=== PATIENT | male | born 1960 | race Caucasian/White ===

== ENCOUNTER 2025-04-01 13:16 | Emergency (ER) | payer MEDICARE, SELFPAY ==
--- OUTSIDE RECORDS SUMMARY | 2025-04-01 13:24 | XMS_ITS | Referral Summary ---
Author Organization [facility] [address] Address [address] [place] [address] Phone Care Team Providers Care Geographic Information Systems Engineer Name Role Phone Ted Robert Karli EPPS Primary Care Provider [phone] Allergies Active Allergy Reactions Criticality Noted Date Comments Meperidine Other Hives,Rash Medium 04/20/2022 [employer] Paroxetine Anxiety Reaction: nervousness, Medications aspirin (ASPIR-81) 81 mg tablet take 1 tablet by oral route every day 0 0 3 Active tadalafiL (CIALIS) 20 mg tablet Q 72 hour prn 10 tablet 1 3 Active amLODIPine (NORVASC) 5 mg tablet TAKE 1 TABLET(5 MG) BY MOUTH DAILY 90 tablet 1 4 Active losartan (COZAAR) 50 mg tablet TAKE 1 TABLET BY MOUTH DAILY 90 tablet 1 4 Active glimepiride (AMARYL) 1 mg tablet TAKE 1 TABLET BY MOUTH EVERY DAY BEFORE BREAKFAST 90 tablet 1 4 Active metFORMIN (GLUCOPHAGE) 1,000 mg tabletIndicatio ns:Type 2 diabetes mellitus without complication, without long-term current use of insulin (HCC) TAKE 1 TABLET(1000 MG) BY MOUTH TWICE DAILY WITH MEALS 180 tablet 1 5 Active Active Problems Problem Noted Date Diagnosed Date Non-recurrent acute suppurat juan carlos otitis media of left ear without spontaneous rupture of tympanic membrane 09/01/2024 Assessment & Plan (09/01/2024 1:56 PM CDT): Acute, symptoms for 5 days. Exam consistent with inner AND outer ear infection. Will Rx Augmentin as directed. Avoid sticking anything in your ears! Including q-tips as they can damage your ear canal. Call if symptoms are not improved with augmentin dosing. Otorrhea of right ear 01/15/2023 Assessment & Plan (02/05/2023 11:09 AM TILE FINISHER): Prescription medication sent to Pharmacy today: Continue 7-10 drops to the right ear twice daily for two more weeks, if no continued improvement will remove T-tube from Right ear at follow up Assessment & Plan (01/15/2023 9:37 AM TILE FINISHER): Ciprofloxacin 7 drops into Right EAR, NOT EYE, twice daily for 10 days Follow up in 2-3 weeks for right ear debris surrounding the T-tube Left T-tube removed today Follow up in 9 months if ringing and ear drainage improved 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 01/15/2023 Assessment & Plan (01/15/2023 9:37 AM TILE FINISHER): Left T-tube removed today with surrounding debris, no ottorrhea Dysfunction of both eustachian tubes 04/20/2022 Assessment & Plan (08/26/2022 1:09 PM CDT): Avoid ear cleaning techniques Avoid water to ears Follow up in 10 months, earlier with ear drainage Assessment & Plan (04/20/2022 3:06 PM CDT): Nasal saline spray (Simply saline, [employer], [place], [place]) 2 second sprays or 2 squeezes into each nostril while looking down over the sink, do not need to sniff in. Followed by Flonase 2 sprays into each nostril while looking down over the sink, do not sniff in or blow nose after use for at least 30 minutes daily Increase Cetirizine 10 mg (Zyrtec) daily Cefdinir with a meal twice daily for 10 days Follow up in 6 weeks with hearing test right before follow up Consider ear tube placement if no improvement Hearing test - [facility] Chronic otitis media of both ears with effusion 04/20/2022 Assessment & Plan (06/19/2022 12:43 PM CDT): Bilateral myringotomy with ear tube placement in Office today Risks and complications discussed including anesthesia, bleeding, infection, hearing loss, ear tubes may fall out early, fall inwards, stay in longer than a few years, get clogged, fall out and leave a hole in the ear drum that would need to be patched, drain clear fluid. Ciprofloxacin 5 drops into EACH EAR, NOT EYE, twice daily for 5 days Follow in 1-2 weeks for recheck Assessment & Plan (06/15/2022 10:09 AM CDT): Bilateral myringotomy with T-tube placement in Office Risks and complications discussed including anesthesia, bleeding, infection, hearing loss, ear tubes may fall out early, fall inwards, stay in longer than a few years, get clogged, fall out and leave a hole in the ear drum that would need to be patched, drain clear fluid. Assessment & Plan (04/20/2022 3:06 PM CDT): Nasal saline spray (Simply saline, [employer], [place], [place]) 2 second sprays or 2 squeezes into each nostril while looking down over the sink, do not need to sniff in. Followed by Flonase 2 sprays into each nostril while looking down over the sink, do not sniff in or blow nose after use for at least 30 minutes daily Increase Cetirizine 10 mg (Zyrtec) daily Cefdinir with a meal twice daily for 10 days Follow up in 6 weeks with hearing test right before follow up Consider ear tube placement if no improvement Hearing test - [facility] Routine physical examination 07/03/2021 Overview (07/03/2021): Added automatically from request for surgery [id number] Assessment & Plan (06/15/2024 6:38 PM CDT): 1, IMMUNIZATIONS WERE REVIEWED AND UPDATED 2. DUE FOR A DILATED EYE EXAM 3. DM TYPE 2 GOAL HBAIC IS UNDER 7 PERCENT / FOOT EXAM IS NL / URINE FOR MICROALBUMIN NEXT VISIT 4. ESSENTIAL HYPERTENSION GOAL BP 130/80 OR UNDER 5. MIXED HYPERLIPIMDEIA : GOAL LDL IS UNDER 100 6. UPTODATE ON COLONSCOPY AND RECTAL EXAM Medical non-compliance 12/31/2017 Alcoholic hepatitis without ascites 05/19/2017 Type 2 diabetes mellitus wit hout complication, without long-term current use of insulin 05/19/2017 Assessment & Plan (12/18/2024 8:00 PM TILE FINISHER): DIALTED EYE EXAM IS NL FOOT EXAM IS NL GOAL HBAIC IS UNDER 7P ERCENT Male erectile disorder 04/14/2014 Overview (03/03/2017): ED (erectile dysfunction) Essential hypertension 04/14/2014 Overview (03/06/2017): Hypertension Assessment & Plan (12/18/2024 7:59 PM TILE FINISHER): GOAL BP IS 130/80 OR UNDER LOW NA DIET Immunizations Immunization Administration Dates Next Due Influenza, Quadrivalent, [place] l Culture-based MDCK, Preservative Free, Antibiotic Free, Intramuscular 09/08/2023,10/06/2021 Influenza, Quadrivalent, Spl it, Intramuscular 10/06/2017 Influenza, Quadrivalent, Spl it, Preservative Free, Intramuscular 09/25/2022,09/12/2020,09/04/2019,09/15 Influenza, Split 08/31/2013 Influenza, Trivalent, High D ose, Split, Preservative Free, Intramuscular 08/28/2016 Influenza, Trivalent, IM (MDV) 08/26/2015,2013 Influenza, Trivalent, Preser vative Free, Intramuscular 09/01/2024,08/27/2016 Tdap 07/25/2012 Social History Tobacco Use Types Packs/Day Years Used Date Smoking Tobacco: Former Smokeless Tobacco: Former Chew Tobacco Cessation:Counseling Given: Not Answered Comments:Smoking History Packs/day: 2 Packs Alcohol Use Standard Drinks/Week Comments Yes 0 (1 standard drink = 0.6 oz pur e alcohol) PHQ-2 Answer Date Recorded PHQ-2 Total Score (If total score is 3 or more points, staff should administer the PHQ-9) 0 06/15/2024 Personal Safety Answer Date Recorded Have you ever been in or are you currently in a harmful physical or emotional relationship or is someone making you feel afraid or unsafe? Denies 06/23/2023 Sex and Gender Information Value Date Recorded Sex Assigned at Not on file Legal Sex Male 1:16 AM TILE FINISHER Gender Identity Not on file Sexual Orientation Not on file Last Filed Vital Signs Vital Sign Reading Time Taken Comments Blood Pressure 122/68 12/18/2024 1:01 PM TILE FINISHER Pulse 72 12/18/2024 1:01 PM TILE FINISHER Temperature 36.3 C (97.3 F) 12/18/2024 1:01 PM TILE FINISHER Respiratory Rate 16 12/18/2024 1:01 PM TILE FINISHER Oxygen Saturation 98% 12/18/2024 1:01 PM TILE FINISHER Inhaled Oxygen Concentration - - Weight 86.1 kg (189 lb 12.8 oz) 12/18/2024 1:01 PM TILE FINISHER Height 172.7 cm (5' 8 ) 12/18/2024 1:01 PM TILE FINISHER Body Mass Index 28.86 12/18/2024 1:01 PM TILE FINISHER Plan of Treatment Not on file Procedures Procedure Name Priority Date/Time Associated Diagnosis Comments HM DIABETES EYE EXAM Routine 03/15/2025 10:36 AM CDT EGFR Routine 12/14/2024 11:23 AM TILE FINISHER Routine physical examination Essential hypertension HEMOGLOBIN A1C Routine 12/14/2024 11:23 AM TILE FINISHER Routine physical examination Type 2 diabetes mellitus without complication, without long-term current use of insulin (HCC) LIPID PANEL Routine 12/14/2024 11:23 AM TILE FINISHER Routine physical examination Type 2 diabetes mellitus without complication, without long-term current use of insulin (HCC) PSA SCREEN Routine 12/14/2024 11:23 AM TILE FINISHER Routine physical examination Prostate cancer screening ALBUMIN CREATININE RATIO, URINE Routine 11/16/2023 11:47 AM TILE FINISHER Type 2 diabetes mellitus without complication, without long-term current use of insulin (HCC) COLONOSCOPY 08/25/2021 7:34 AM CDT from Last 3 Months or Most Recently Relevant to Health Maintenance Results * DIABETES EYE EXAM (03/15/2025 10:36 AM CDT) SCRIBED DIABETIC DILATED EYE EXAM Normal Historical Provider HEALTH MAINTENANCE Final Result * eGFR (12/14/2024 11:23 AM TILE FINISHER) eGFR 73 >=60 mL/min/1. 73 m2 Comment: Interpretive Data Reference Interval Normal >/= 90 mL/min/1.73m2 Mildly decreased* 60 - 89 mL/min/1.73m2 Mildly to moderately decreased 45 - 59 mL/min/1.73m2 Moderately to severely decreased 30 - 44 mL/min/1.73m2 Severely decreased 15 - 29 mL/min/1.73m2 Kidney Failure < 15 mL/min/1.73m2 *Relative to young adult level Estimated glomerular filtration rate is determined by the 2020 CKD-EPI equation recommended by the National Kidney Foundation (A Unifying Approach to GFR Estimation: Recommendations of the NKF-ASK Task Force on Reassessing the Inclusion of Race in Diagnosing Kidney Disease, JASN 2020). The CKD-EPI equation should not be used for patients with unstable renal function and has not been validated in children and those over 70. Current interpretive data was last reviewed 2021. Testing performed by: , [address] [place] [address], [place]., [address] Blood 12/14/2024 11:2 3 AM TILE FINISHER 12/14/2024 6:26 PM TILE FINISHER Ted Robert MD LAB BLOOD ORDERABLES Final Result [facility] [address] [facility] [place] Department [place] [address] * PSA screen (12/14/2024 11:23 AM TILE FINISHER) PSA-Total 0.73 <=5.40 ng/mL Comment: Interpretive Data AGE SEX REFERENCE INTERVAL 0 minutes-150 years Female None 0 minutes-49 years Male None 50-59 years Male 0-3.90 60-69 years Male 0-5.40 70-79 years Male 0-6.20 80-150 years Male 0-6.20 The Tor PSA Total assay procedure was used. Results from different manufacturers or methods may not be comparable. Serial testing should be performed using the same method. Current interpretive data last revised 22. Testing performed by: [address] [address] Blood 12/14/2024 11:2 3 AM TILE FINISHER 12/14/2024 6:10 PM TILE FINISHER Result [facility] Ted Robert MD LAB BLOOD ORDERABLES Final Result [facility] [address] Department [place] [address] * (ABNORMAL) Hemoglobin A1c (12/14/2024 11:23 AM TILE FINISHER) Pathologist [facility] Hgb A1C 6.8(H) 4.0 - 5.6 % Comment:Testing performed by : [address] [address] Estimated Average Glucose 148 mg/dL [facility] Comment: The ADA recommends reporting an estimated Average Glucose (eAG) with all Hemoglobin A1c results using the equation derived from a study of 507 normal and diabetic adults. Minority populations were underrepresented and children were not included. (Diabetes Care 31:8997-6097, 2008). The eAG is not equivalent to a fasting glucose. Testing performed by: [address] [address] Blood 12/14/2024 11:2 3 AM TILE FINISHER 12/14/2024 6:10 PM TILE FINISHER Ted Robert MD LAB BLOOD ORDERABLES Final Result [facility] [address] [facility] [place] Department [place] [address] * (ABNORMAL) Lipid panel (12/14/2024 11:23 AM TILE FINISHER) Cholesterol 190 30 - 199 mg/dL Comment: Interpretive Data Ages < or = 19 years Acceptable: <170 mg/dL Borderline high: 170-199 mg/dL High: >or= 200 mg/dL Ages > or = 20 years Desirable: <200 mg/dL Borderline high: 200-239 mg/dL High: >or= 240 mg/dL Literature References: 1. Expert Panel on Integrated Guidelines for Cardiovascular Health and Risk Reduction in Children and Adolescents. Pediatrics 2011;128:S213 2. NCEP Expert Panel. Circulation 2004;110:227 Current Interpretive Data was last revised on 2018. Testing performed by: [address] [address] Triglycerides 164(H) <=149 mg/dL [facility] Comment: Interpretive Data Ages < or = 9 years Acceptable: <75 mg/dL Borderline high: 75-99 mg/dL High: >or= 100 mg/dL Ages 10 to 20 years Acceptable: <90 mg/dL Borderline high: 90-129 mg/dL High: >or= 130 mg/dL Ages > or = 20 years Desirable: <150 mg/dL Borderline high: 150-199 mg/dL High: 200-499 mg/dL Very high: >or= 499 mg/dL Literature References: 1. Expert Panel on Integrated Guidelines for Cardiovascular Health and Risk Reduction in Children and Adolescents. Pediatrics 2011;128:S213 2. NCEP Expert Panel. Circulation 2004;110:227 Current Interpretive Data was last revised on 2018. Testing performed by: , [address] [place] [address]., [address] HDL 32(L) >=40 mg/dL [facility] Comment: Interpretive Data Ages < or = 19 years Acceptable: >45 mg/dL Borderline low: 40-45 mg/dL Low: <40 mg/dL Ages > or = 20 years Desirable: >or= 60 mg/dL Low: <40 mg/dL Literature References: 1. Expert Panel on Integrated Guidelines for Cardiovascular Health and Risk Reduction in Children and Adolescents. Pediatrics 2011;128:S213 2. NCEP Expert Panel. Circulation 2004;110:227 Current Interpretive Data was last revised on 2018. Testing performed by: [address] [address] LDL, calculated 128 <=129 mg/dL [facility] RUIZ Comment: Interpretive Data Ages < or = 19 years Acceptable: <110 mg/dL Borderline high: 110-129 mg/dL High: >or= 130 mg/dL Ages > or = 20 years Optimal: <100 mg/dL Near optimal: 100-129 mg/dL Borderline high: 130-159 mg/dL High: >160 mg/dL Calculated using the Jed LDL-C estimating equation. This equation was implemented on 2024. Prior to this date LDL-C was estimated using the Friedewald equation. Literature References: 1. Expert Panel on Integrated Guidelines for Cardiovascular Health and Risk Reduction in Children and Adolescents. Pediatrics 2011;128:S213 2. NCEP Expert Panel. Circulation 2004;110:227 3. Jed Boone et al. HERIBERTO Cardiol. 2019March 29;5(5):540-548. doi: 10.1001/[email or web address] Current Interpretive Data was last revised on 2024. Testing performed by: [address] [address] Non-HDL Cholesterol 158 mg/dL [facility] Comment: Interpretive Data Ages < or = 19 years Acceptable: <120 mg/dL Borderline high: 120-144 mg/dL High: >145 mg/dL Ages > or = 20 years When triglycerides are >200 mg/dL, Non-HDL cholesterol is a secondary target of therapy with treatment goals that are 30 mg/dL greater than the LDL cholesterol target. Literature References: 1. Expert Panel on Integrated Guidelines for Cardiovascular Health and Risk Reduction in Children and Adolescents. Pediatrics 2011;128:S213 2. NCEP Expert Panel. Circulation 2004;110:227 Current Interpretive Data was last revised on 2018. Testing performed by: [address] [place] [address] Chol/HDL ratio 6 [facility] Comment:Testing performed by : [address] [place] [address] Blood 12/14/2024 11:2 3 AM TILE FINISHER 12/14/2024 6:10 PM TILE FINISHER Ted Robert MD LAB BLOOD ORDERABLES Final Result Performing Organization Address [facility] Phone Number [facility] [phone] [address] [place] [phone] * (ABNORMAL) Albumin Creatinine Ratio, Urine (11/16/2023 11:47 AM TILE FINISHER) Albumin Ur 64.7 mg/L [facility] Comment: Interpretive Data No reference range established. Current interpretive data was last revised 2019. Creatinine Ur 206.8 mg/dL [facility] Comment: Interpretive Data No reference range established. Current interpretive data was last revised 2019. Albumin Creatinine Ratio, Ur 31(H) 1 - 29 mg/g [facility] Urine 11/16/2023 11:4 7 AM TILE FINISHER 11/16/2023 5:33 PM TILE FINISHER Ted Robert MD LAB URINE ORDERABLES Final Result Performing Organization Address [facility] Phone Number [facility] [phone] [place] [address] * COLONOSCOPY (08/25/2021 7:34 AM CDT) Anatomical Region Laterality Modality Other Narrative Procedure Note Lc Garvin MD - 08/25/2021 7:34 AM CDT [facility] Patient Name: Nilesh No Procedure Date: 08/25/2021 7:34 AM Date of : 1960 Admit Type: Outpatient Age: 60 Gender: Male Attending MD: Lc Garvin M.D. Room: [facility] ENDOSCOPY ROOM 2 Note Status: Finalized Patient Profile: Refer to note in patient chart for documentation of history and physical. Procedure: Colonoscopy Indications: Screening for colorectal malignant neoplasm, Last colonoscopy: February 2010 Referring MD: Ted Robert M.D. Providers: Lc Garvin M.D. Impression: - Hemorrhoids found on perianal exam. - The entire examined colon is normal. - No specimens collected. Recommendation: - Discharge patient to home. - Resume previous diet. - Continue present medications. - Repeat colonoscopy in 10 years for screening purposes. - Return to primary care physician as previously scheduled. Medicines: Propofol per Anesthesia Complications: No immediate complications. Estimated Blood Loss: Estimated blood loss: none. Procedure: Pre-Anesthesia Assessment: - This assessment was completed [Time ofAssessment] prior to the administration of sedation. The benefits, risks and alternatives of theprocedure and sedation were discussed and informed consentwas obtained. All questions were answered. Please referto the signed informed consent document in the medical record. The bowel preparation used was Miralax and bisacodyl tablets via single dose instruction. The scope was passed under direct vision. TheColonoscope [id number] was introduced through the anus and advanced to the the cecum, identified by appendiceal orifice and ileocecal valve. The colonoscopy was performed without difficulty. The patient tolerated the procedure well. The qualityof the bowel preparation was good. Findings: Hemorrhoids were found on perianal exam. The colon (entire examined portion) appeared normal. Electronically signed by Lc Garvin M.D. Lc Garvin M.D. 08/25/2021 9:17:34 AM Number of Addenda: 0 Note Initiated On: 08/25/2021 7:34 AM Procedure Code(s): --- Professional --- G0121, Colorectal cancer screening; colonoscopy on individual not meeting criteria for high risk Diagnosis Code(s): --- Professional --- K64.9, Unspecified hemorrhoids Z12.11, Encounter for screening for malignant neoplasm of colon CPT copyright 2019 [employer]. All rights reserved. The codes documented in this report are preliminary and upon indirect sales representative reviewmay be revised to meet current compliance requirements. Recognized by the [employer] for promoting quality in endoscopy Lc Garvin MD ENDOSCOPY PROCEDURES Final Re sult from Last 3 Months or Most Recently Relevant to Health Maintenance Insurance [place] [address] [employer] [facility] [place] [address] Advance Directives For more information, please contact: [phone] * Full Code (Latest Code Status on File) Date Activated Date Inactivated Comments 08/25/2021 7:46 AM 08/25/2021 2:08 PM * Full Code Date Activated Date Inactivated Comments 08/25/2021 7:46 AM 08/25/2021 7:46 AM Care Teams Geographic Information Systems Engineer Relationship Specialty Start Date End Date Ted Robert MD [address] [place] [address] PCP - General 02/26/17
--- OUTSIDE RECORDS SUMMARY | 2025-04-01 13:24 | XMS_ITS | Clinical Summary ---
Author Organization [facility] [address] Address [address] [place] [address] Phone Care Team Providers Care Forestry Patrolman Name Role Phone Ted Robert Karli EPPS Primary Care Provider [phone] Allergies Active Allergy Reactions Criticality Noted Date [...] 01/15/2023 Assessment & Plan (02/05/2023 11:09 AM HEAVY COIL WINDER): Prescription medication sent to Pharmacy today: Continue 7-10 drops to the right ear twice daily for two more weeks, if no continued improvement will remove T-tube from Right ear at follow up Assessment & Plan (01/15/2023 9:37 AM HEAVY COIL WINDER): Ciprofloxacin 7 drops into Right EAR, NOT EYE, twice daily for 10 days Follow up in 2-3 weeks for right ear debris surrounding the T-tube Left T-tube removed today Follow up in 9 months if ringing and ear drainage improved 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 01/15/2023 Assessment & Plan (01/15/2023 9:37 AM HEAVY COIL WINDER): Left T-tube removed today with surrounding debris, no ottorrhea Dysfunction of both eustachian tubes 04/20/2022 Assessment & Plan (08/26/2022 1:09 PM CDT): Avoid ear cleaning techniques Avoid water to ears Follow up in 10 months, earlier with ear drainage Assessment & Plan (04/20/2022 3:06 PM CDT): Nasal saline spray (Simply saline, [place], [place], [place]) 2 second sprays or 2 squeezes into [...] placement if no improvement Hearing test - [facility] Chronic otitis media of both [...] Nasal saline spray (Simply saline, [place], [place], [place]) 2 second sprays or 2 squeezes into [...] placement if no improvement Hearing test - [facility] Routine physical examination 07/03/2021 Overview (07/03/2021): Added automatically from request for surgery [id number] Assessment & Plan (06/15/2024 6:38 PM CDT): [...] 05/19/2017 Assessment & Plan (12/18/2024 8:00 PM HEAVY COIL WINDER): DIALTED EYE EXAM IS NL FOOT EXAM IS NL GOAL HBAIC IS UNDER 7P ERCENT Male erectile disorder 04/14/2014 Overview (03/03/2017): ED (erectile dysfunction) Essential hypertension 04/14/2014 Overview (03/06/2017): Hypertension Assessment & Plan (12/18/2024 7:59 PM HEAVY COIL WINDER): GOAL BP IS 130/80 OR UNDER LOW [...] Preser vative Free, Intramuscular 09/01/2024,08/27/2016 Tdap 07/25/2012 Surgical History Surgery Date Site/Laterality Comments COLONOSCOPY 03/20/2010 COLONOSCOPY 08/25/2021 Medical History Medical History Date Comments Hx Other Medical tubes Hypertension Type 2 diabetes mellitus (HCC) Family History Medical History Relation Name Comments Breast cancer Other 1 Family history of Cancer, breast; Diabetes Other 2 Family history of Diabetes mellitus; Relation Name Status Comments Other 1 Other 2 Social History Tobacco Use Types Packs/Day Years [...] on file Legal Sex Male 1:16 AM HEAVY COIL WINDER Gender Identity Not on file Sexual Orientation Not on file Obstetrics History Last Filed Vital Signs Vital Sign Reading Time Taken Comments Blood Pressure 122/68 12/18/2024 1:01 PM HEAVY COIL WINDER Pulse 72 12/18/2024 1:01 PM HEAVY COIL WINDER Temperature 36.3 C (97.3 F) 12/18/2024 1:01 PM HEAVY COIL WINDER Respiratory Rate 16 12/18/2024 1:01 PM HEAVY COIL WINDER Oxygen Saturation 98% 12/18/2024 1:01 PM HEAVY COIL WINDER Inhaled Oxygen Concentration - - Weight 86.1 kg (189 lb 12.8 oz) 12/18/2024 1:01 PM HEAVY COIL WINDER Height 172.7 cm (5' 8 ) 12/18/2024 1:01 PM HEAVY COIL WINDER Body Mass Index 28.86 12/18/2024 1:01 PM HEAVY COIL WINDER Plan of Treatment Health Maintenance Due Date Last Done Comments Hepatitis C Screening 1960 Foot Exam 1960 Hepatitis B Screening 1977 Pneumococcal vaccine 65+ (1 of 2 - PCV) 1978 Zoster Vaccine (1 of 2) 2009 DTaP/Tdap/Td Vaccine (2 - Td or Tdap) 07/25/2022 07/25/2012 Covid-19 Vaccine ( - 2023-2 5 season) 2024 12/04/2021, 02/22/2021, 01/28/2021 Albumin Creatinine Ratio, Urine 11/16/2024 11/16/2023, 08/20/2022, 08/13/2016, Additional history exists Abdominal Aortic Aneurysm (A AA) Screen 2024 Hemoglobin A1C 06/13/2025 12/14/2024, 05/29, 11/16/2023, Additional history exists Depression Screening 06/15/2025 06/15/2024, 06/20/20 21 Well Visit 65+ 06/15/2025 06/15/2024, 07/31, 05/23/2020, Additional history exists Lipid Panel 12/14/2025 12/14/2024, 05/29, 11/16/2023, Additional history exists eGFR 12/14/2025 12/14/2024, 05/29, 11/16/2023, Additional history exists Fall Risk Assessment 12/18/2025 12/18/2024, 08/25/20 21 Dilated Eye Exam 03/15/2026 03/15/2025, 06/15/2023 Prostate Cancer Screening-PSA 12/14/2026, 11/16/2023, 08/20/2022, Additional history exists Colon Cancer Screening-Colonoscopy 08/25/2031 08/25/2021 Colon Cancer Screening-CT Colonography Discontinued 08/25/2021 Colon Cancer Screening-DNA Stool Discontinued 08/25/20 21 Colon Cancer Screening-FIT Discontinued 08/25/2021 Colon Cancer Screening-Sigmoidoscopy Discontinued 08/25/2021 Influenza Vaccine Completed 09/01/2024, , 09/25/2022, Additional history exists Procedures Procedure Name Priority Date/Time Associated Diagnosis Comments HM DIABETES EYE EXAM Routine 03/15/2025 10:36 AM CDT EGFR Routine 12/14/2024 11:23 AM HEAVY COIL WINDER Routine physical examination Essential hypertension HEMOGLOBIN A1C Routine 12/14/2024 11:23 AM HEAVY COIL WINDER Routine physical examination Type 2 diabetes mellitus without complication, without long-term current use of insulin (HCC) LIPID PANEL Routine 12/14/2024 11:23 AM HEAVY COIL WINDER Routine physical examination Type 2 diabetes mellitus without complication, without long-term current use of insulin (HCC) PSA SCREEN Routine 12/14/2024 11:23 AM HEAVY COIL WINDER Routine physical examination Prostate cancer screening ALBUMIN CREATININE RATIO, URINE Routine 11/16/2023 11:47 AM HEAVY COIL WINDER Type 2 diabetes mellitus without complication, without long-term current use of insulin (HCC) COLONOSCOPY 08/25/2021 7:34 AM CDT from Last 3 Months or Most Recently Relevant to Health Maintenance Results * DIABETES EYE EXAM (03/15/2025 10:36 AM CDT) SCRIBED DIABETIC DILATED EYE EXAM Normal Historical Provider HEALTH MAINTENANCE Final Result * eGFR (12/14/2024 11:23 AM HEAVY COIL WINDER) eGFR 73 >=60 mL/min/1. 73 m2 Comment: [...] of Race in Diagnosing Kidney Disease, JASN 202). The CKD-EPI equation should not be used for patients with unstable renal function and has not been validated in children and those over 70. Current interpretive data was last reviewed 2021. Testing performed by: [facility], [address] [place] [address], [place]., [address] Blood 12/14/2024 11:2 3 AM HEAVY COIL WINDER 12/14/2024 6:26 PM HEAVY COIL WINDER Ted Robert MD LAB BLOOD ORDERABLES Final Result Performing Organization Address [facility] Co de Phone Number JORJE [address] [facility] [employer] [place] [address] * PSA screen (12/14/2024 11:23 AM HEAVY COIL WINDER) PSA-Total 0.73 <=5.40 ng/mL Comment: Interpretive Data AGE SEX REFERENCE INTERVAL 0 minutes-150 years Female None 0 minutes-49 years Male None 50-59 years Male 0-3.90 60-69 years Male 0-5.40 70-79 years Male 0-6.20 80-150 years Male 0-6.20 The [employer] PSA Total assay procedure was used. Results from different manufacturers or methods may not be comparable. Serial testing should be performed using the same method. Current interpretive data last revised 22. Testing performed by: [address] [address] Blood 12/14/2024 11:2 3 AM HEAVY COIL WINDER 12/14/2024 6:10 PM HEAVY COIL WINDER Ted Robert MD LAB BLOOD ORDERABLES Final Result Performing Organization Address [facility] de Phone Number JORJE [address] [facility] [employer] [place] [address] * (ABNORMAL) Hemoglobin A1c (12/14/2024 11:23 AM HEAVY COIL WINDER) Hgb A1C 6.8(H) 4.0 - 5.6 % Comment:Testing performed by : [address] [address] Estimated Average Glucose 148 mg/dL JORJE RUIZ Comment: The ADA recommends reporting an estimated Average Glucose (eAG) with all Hemoglobin A1c results using the equation derived from a study of 507 normal and diabetic adults. Minority populations were underrepresented and children were not included. (Diabetes Care 31:3772-0604, 2008). The eAG is not equivalent to a fasting glucose. Testing performed by: [address] [address] Blood 12/14/2024 11:2 3 AM HEAVY COIL WINDER 12/14/2024 6:10 PM HEAVY COIL WINDER us Ted Robert MD LAB BLOOD ORDERABLES Final Result [facility] [address] [facility] Department of Laboratories [place], [place] [id number] * (ABNORMAL) Lipid panel (12/14/2024 11:23 AM HEAVY COIL WINDER) Cholesterol 190 30 - 199 mg/dL Comment: [...] last revised on 2018. Testing performed by: [address] [address] Triglycerides 164(H) <=149 mg/dL JORJE RUIZ Comment: Interpretive Data Ages [...] last revised on 2018. Testing performed by: [address] [address] HDL 32(L) >=40 mg/dL JORJE Comment: Interpretive [...] last revised on 2018. Testing performed by: [facility], [address] [place] [address]., [address] LDL, calculated 128 <=129 mg/dL JORJE Comment: Interpretive Data Ages < [...] NCEP Expert Panel. Circulation 2004;110:227 3. Jed Rojas al. HERIBERTO Cardiol. 2019March 29;5(5):540-548. doi: [email or web address] Current Interpretive Data was last revised on 2024. Testing performed by: [facility], [address] [place] [address]., [address] Non-HDL Cholesterol 158 mg/dL JORJE Comment: Interpretive [...] in Children and Adolescents. Pediatrics 2011;128:S213 2. NEEP Expert Panel. Circulation 2004;110:227 Current Interpretive Data was last revised on 2018. Testing performed by: [facility], [address] [place] [address]., [address] Chol/HDL ratio 6 [facility] Comment:Testing performed by : [facility], [address] [place] [address]., [address] Blood 12/14/2024 11:2 3 AM HEAVY COIL WINDER 12/14/2024 6:10 PM HEAVY COIL WINDER Ted Robert MD LAB BLOOD ORDERABLES Final Result Performing Organization Address [facility] de Phone Number [facility] [address] [place] [address] * (ABNORMAL) Albumin Creatinine Ratio, Urine (11/16/2023 11:47 AM HEAVY COIL WINDER) Albumin Ur 64.7 mg/L JORJE Comment: Interpretive Data No reference range established. Current interpretive data was last revised 2019. Creatinine Ur 206.8 mg/dL JORJE Comment: Interpretive Data No reference range established. Current interpretive data was last revised 2019. Albumin Creatinine Ratio, Ur 31(H) 1 - 29 mg/g JORJE Urine 11/16/2023 11:4 7 AM HEAVY COIL WINDER 11/16/2023 5:33 PM HEAVY COIL WINDER Ted Robert MD LAB URINE ORDERABLES Final Result Performing Organization Address [facility] Co de Phone Number [facility] [address] [place] [address] * COLONOSCOPY (08/25/2021 7:34 AM CDT) Anatomical Region Laterality Modality Other Narrative Procedure Note Lc Garvin MD - 08/25/2021 7:34 AM CDT [facility] Patient Name: Nilesh No Procedure Date: 08/25/2021 7:34 AM Date of : 1960 Admit Type: Outpatient Age: 60 Gender: Male Attending MD: Lc Garvin M.D. Room: COUNTS INCLUDE 234 BEDS AT THE [facility] ENDOSCOPY ROOM 2 Note Status: Finalized Patient [...] scope was passed under direct vision. TheColonoscope [id number] was introduced through the anus and advanced [...] malignant neoplasm of colon CPT copyright 2019 [employer] [place] [employer]. All rights reserved. The codes documented in this report are preliminary and upon aviation mechanic reviewmay be revised to meet current compliance requirements. Recognized by the [place] [employer] Gastrointestinal [employer] for promoting quality in endoscopy Lc Garvin MD ENDOSCOPY PROCEDURES Final Re sult from Last 3 Months or Most Recently Relevant to Health Maintenance Insurance [employer] [facility] HMO [facility] MEDICARE ADVANT[facility] MEDIC[facility] Address: [address] [address] [place] [address] Advance Directives For more information, please contact: [phone] * Full Code (Latest Code Status on File) Date Activated Date Inactivated Comments 08/25/2021 7:46 AM 08/25/2021 2:08 PM * Full Code Date Activated Date Inactivated Comments 08/25/2021 7:46 AM 08/25/2021 7:46 AM Care Teams Forestry Patrolman Relationship Specialty Start Date End Date Ted Robert MD [address] [place] [address] [facility] - General 02/26/17
--- OUTSIDE RECORDS SUMMARY | 2025-04-01 13:24 | XMS_ITS | Clinical Summary ---
Author Organization [facility] Care Team Providers Care Cafeteria Aide Name Role Phone Unavailable Primary Care Provider Unavailabl e Allergies Active Allergy Reactions Criticality Noted Date Comments Meperidine Other (see Comments) Passes out Other Hives,[employer] Medications aspirin EC (ADULT ASPIRIN EC LOW STRENGTH) 81 MG Tablet Delayed ResponseIndicati ons:once a day Indications : once a day Active amLODIPine (NORVASC) 2.5 MG TabletIndication s:once a day Indications : once a day Active Clindamycin HCl 300 MG Capsule 3 times daily. Active losartan (COZAAR) 50 MG Tablet 2 times daily. Active sertraline (ZOLOFT) 50 MG TabletIndication s:once a day Indications : once a day Active HYDROcodone-acet aminophen (NORCO) 5-325 MG Tablet 1-2 Tabs every 6 hours as needed. Active Active Problems Problem Noted Date Diagnosed Date Epidermal inclusion cyst Social History Tobacco Use Types Packs/Day Years Used Date Smoking Tobacco: Never Assessed Sex and Gender Information Value Date Recorded Sex Assigned at Not on file Legal Sex Male 9:02 PM CDT Gender Identity Not on file Sexual Orientation Not on file Plan of Treatment Health Maintenance Due Date Last Done Comments Hepatitis C Virus (HCV) Screening 1960 TdaP Immunization 1960 Colonoscopy 2004 Colorectal Cancer Screening 2004 Cologuard 2009 Immunochemical Fecal Occult Blood 2009 Pneumococcal Immunization (5 0+ years) (1 of 1 - PCV) 2009 Zoster Immunization (1 of 2) 2009 PSA Discussion 2014 Influenza Immunization (#1) 2024 SARS-COV-2 Immunization ( - 2023-25 season) 2024 Respiratory Syncytial Virus (RSV) Immunization (Adult) (1 - 1-dose 75+ series) 2034 Hepatitis B Immunization Aged Out No longer eligible based on patient's age to complete this topic Meningococcal Immunization (ACWY) Aged Out No longer eligible based on patient's age to complete this topic Pneumococcal Immunization Combined Aged Out No longer eligible based on patient's age to complete this topic Rotavirus Immunization Aged Out No lo nger eligible based on patient's age to complete this topic
[2025-04-01 13:26] VITALS: BP 148/72; PULSE 72; RESP 20; TEMP 36.3; O2SAT 100
--- NOTE | 2025-04-01 14:26 | ED_ITS ---
HPI - Dizziness General Chief Complaint: Dizziness Stated Complaint: dizzy since wednesday Time Seen by Provider: 04/01/25 13:55 Source: patient and RN notes reviewed Mode of arrival: ambulatory Limitations: no limitations History of Present Illness HPI Narrative: 64-year-old male presents Express Care complaining of dizziness for 2 days. Patient reports he feels like he is constantly in motion and feels like he is off balance when he walks. Patient says the dizziness is worse when he lays down. Patient denies any slurred speech, weakness, vision changes, headaches, ear pain, ear discharge, or any other neurological symptoms. Patient reports having ear problems and recently had ear tubes placed. He says his ear tubes are gone. Patient does report that he feels like his hearing is decreased but says he has chronic ear problems. Patient has not tried anything [id number] for management. Patient denies any chest pain, shortness of breath, lightheadedness, near-syncope, or syncope. Related Data Home Medications ?Medication ?Instructions ?Recorded ?Confirmed ?Last Taken ?Type amlodipine 5 mg tablet mg 04/01/25 Unknown History aspirin 81 mg tablet,delayed 81 mg PO DAILY 04/01/25 Unknown History release (Adult Aspirin Regimen) glimepiride 1 mg tablet mg 04/01/25 Unknown History losartan 50 mg tablet mg 04/01/25 Unknown History metformin 1,000 mg tablet mg 04/01/25 Unknown History Allergies Allergy/AdvReac Type Severity Reaction Status Date / Time No Known Allergies Allergy Verified 04/01/25 13:30 Review of Systems Review of Systems: CONSTITUTIONAL: Denies fever, chills, or sweats. EYES: Denies visual changes, blurry vision, redness, or discharge. ENT: Denies rhinorrhea, congestion, sore throat, or otalgia. CARDIOVASCULAR: Denies chest pain, palpitations, lightheadedness, syncope, or edema. RESPIRATORY: Denies cough or dyspnea. GASTROINTESTINAL: Denies abdominal pain, nausea, vomiting, or diarrhea. GENITOURINARY: Denies dysuria or hematuria. SKIN: Denies rash or itching. MUSCULOSKELETAL: Denies back pain, joint pain, or myalgia. NEUROLOGIC: Denies headache, numbness, slurred speech, or weakness. Positive for dizziness. PSYCHIATRIC: Denies anxiety or depression. All other systems reviewed are negative, except as documented in HPI. PMFSH Comments At the time of my signature, I reviewed and agree with the nursing past medical, surgical, social, and family history. There is no relevant family history pertinent to the patient complaint. Exam Narrative: GENERAL: This is a well-nourished, well-developed adult, in no apparent distress. They are non ill-appearing, nontoxic appearing. HEAD: normocephalic, atraumatic. EYES: Sclera clear/white. Conjunctiva normal. Vision is grossly intact. Extraocular movements intact. Pupils PERRLA. Nystagmus present during madan- hallpike maneuver. EARS: External ears normal, right auditory canal with impacted cerumen. Left auditory canal with cerumen present without impaction, and purulent discharge., unable to visualize right TM. Left TM is erythematous and perforated discharge present. Hearing grossly intact. NOSE: External nose normal with no obvious nasal discharge, nasal turbinates without redness, no rhinorrhea. THROAT: Mucous membranes moist, posterior pharynx clear, without erythema or swelling. Uvula midline. NECK: Neck supple, non-tender without lymphadenopathy, masses or thyromegaly. CARDIOVASCULAR: Regular rate and rhythm without murmurs, gallops, or rubs. RESPIRATORY: Clear to auscultation. Breath sounds equal bilaterally. No wheezes, rales, or rhonchi. SKIN: warm, Dry, intact with no suspicious lesions or rash, good texture and turgor. NEURO: awake, alert, and oriented to person, place and time. There were no obvious focal neurologic abnormalities. No pronator drift, learning analyst strength strong and equal bilaterally. No facial asymmetry or droop, tongue midline. Speech is clear and comprehensible. Normal sensation. Normal dorsiflexion and plantar flexion. No leg drop bilaterally. Gait is steady. No limb ataxia. No inattention or extinction. EXTREMITIES: No joint tenderness, effusion, or edema noted. BACK: Nontender without deformity. No CVA tenderness. Course Course Emergency Course: Portions of this record may have been created with voice recognition software Level of Care: Express Care Visit Vital Signs Vital signs: Vital Signs Temperature 97.4 F L 04/01/25 13:26 Pulse Rate 72 04/01/25 13: Respiratory Rate 20 04/01/25 13:26 Blood Pressure 148/72 H 05/04/25 13:26 Pulse Oximetry 100 04/01/25 13:26 Oxygen Delivery Room Air 04/01/25 13:26 Temperature 97.4 F L 04/01/25 13:26 Pulse Rate 72 04/01/25 13:26 Respiratory Rate 20 04/01/25 13:26 Blood Pressure 148/72 H 04/01/25 13:26 Pulse Oximetry 100 04/01/25 13:26 Oxygen Delivery Room Air 04/01/25 13:26 Reviewed MDM - Dizziness MDM Narrative Medical decision making narrative: NIH score of 0. Positive madan-hallpike maneuver. Nystagmus was present during exam. Likely patient has BPPV associated with a perforated left tympanic membrane or could be from the impacted ear wax on the right side. Discussed with patient about right auditory canal irrigation to remove the wax, and he elected not to have his right auditory canal irrigated since he already has a ruptured left TM and unsure if the right is ruptured as well. Left TM is erythematous with discharge present. Will treat empirically for an otitis media with amoxicillin for at least 10 days. Will also prescribe meclizine as needed for dizziness. Advised patient to follow-up with ENT. Patient has seen Dr. Wells in the past and will try to follow-up with her, a referral was given as well. Discussed physical exam findings. Advised supportive measures and signs/symptoms to go to the ER. Pt is appropriate for outpt treatment and f/u. Differential Diagnosis Differential diagnosis: Likely cerebrovascular accident and other (Vertigo, impacted earwax, otitis media) Critical Care Time Critical Care Time Critical Care Time: No Discharge Plan Discharge Clinical Impression: Eardrum rupture, left, Dizziness Cerumen impaction Qualifiers: Laterality: right Qualified Code(s): H61.21 - Impacted cerumen, right ear Patient Disposition: Home Condition: Stable Instructions: Antibiotic Form, Ruptured Eardrum (ED), Vertigo (ED) Additional Instructions: Your left ear drum is perforated. Your right ear canal is impacted with earwax. Please avoid swimming or any activities that submerge her head under water. Avoid getting water in your ears. Please take the antibiotics as directed. This is likely causing your dizziness. Take meclizine as directed. You may increase to 50 mg on an as-needed basis or as tolerated if 25 mg is not effect juan carlos. Please do not drive or operate machinery while taking meclizine as it may make you drowsy. Please follow-up with ENT in the next 3 days. Follow up with her PCP as well. If your dizziness gets worse, he developed fevers, weakness on 1 side of the body, slurred speech or any other concerns please go to the ER immediately. Patient Language: Greek Prescriptions: New amoxicillin 875 mg tablet 875 mg PO Q12H 10 Days Qty: 20 0RF meclizine 25 mg tablet 25 mg PO QID Qty: 30 0RF No Action losartan 50 mg tablet amlodipine 5 mg tablet glimepiride 1 mg tablet metformin 1,000 mg tablet aspirin [Adult Aspirin Regimen] 81 mg tablet,delayed release (DR/EC) 81 mg PO DAILY Follow-up/Referrals: Leah Thrasher MD [Physician] - 3 Days () Jakob,MD Ted [Primary Care Provider] - Time of Disposition: 14:04
== END 2025-04-01 14:12 | disposition home or self-care (01) ==
PROVIDERS: PCP Internal Medicine Infectious Disease
DX: H72.92 Unspecified perforation of tympanic membrane, left ear (principal); R42 Dizziness and giddiness; H61.21 Impacted cerumen, right ear; I10 Essential (primary) hypertension; E11.9 Type 2 diabetes mellitus without complications
CPT/HCPCS: 99203; G0463